=== PATIENT | female | born 1995 | race Caucasian/White ===

== ENCOUNTER 2016-12-31 05:39 | Emergency (ER) | payer BC ==
[~2016-12-31] VITALS: Ht 160 cm; Wt 56.8 kg
[2016-12-31 05:46] VITALS: BP 104/58; PULSE 86; TEMP 98
== END 2016-12-31 06:55 | disposition home or self-care (01) ==
LOC: COL.ER 05:39
DX: S63.501A Unspecified sprain of right wrist, initial encounter (principal); W19.XXXA Unspecified fall, initial encounter